=== PATIENT | female | born 1995 | race Caucasian/White ===

== ENCOUNTER 2021-03-17 20:00 | Outpatient (CLI) | payer OTHER, SELFPAY | END 2021-03-17 20:01 | disposition home or self-care (01) | LOC: SLEEP 03-18 06:35 | PROVIDERS: Visit Provider Specialist | DX: J34.89 Other specified disorders of nose and nasal sinuses (principal) | CPT/HCPCS: 95810 ==

== ENCOUNTER → 2021-08-10 14:03 | Outpatient (BNVA) | payer OTHER, SELFPAY | PROVIDERS: Visit Provider Specialist | DX: Z20.822 Contact with and (suspected) exposure to COVID-19 (principal) | CPT/HCPCS: 87635 ==

== ENCOUNTER 2021-08-15 09:55 | Observation (INO) | payer OTHER, SELFPAY ==
[2021-08-14 13:34] VITALS: BMI 40.7
[2021-08-15 06:27] VITALS: BP 128/97; PULSE 105; RESP 18; TEMP 36.8; O2SAT 94
--- NOTE | 2021-08-15 06:46 | W.PM.OPSUD ---
Surgery/Procedure H&P Update DATE OF PROCEDURE: August 15, 2021 DATE H&P PERFORMED: 07/21/21 PRIMARY INDICATION FOR PROCEDURE: H/O Right thyroid lobe papillary thyroid carcinoma PLANNED PROCEDURE: Operation Date: 08/15/21 07:00 Proposed Procedures p Alberto-thyroidectomy/complete(Left) - Luke Maradiaga MD
[2021-08-15] MEDS: sodium chloride 0.9% 1,000 ML 30 ML IV ×2 (06:49→14:23)
--- NOTE | 2021-08-15 06:58 | ANES.PREANE2 ---
Pre-Anesthetic Assessment Height/Weight: Height 1.7 m Weight 117.934 kg Temp Pulse Resp BP Pulse Ox 98.2 F 105 H 18 128/97 94 08/15/21 06:27 08/15/21 06:27 08/15/21 06:27 08/15/21 06:27 08/15/21 06:27 Operation Date: 08/15/21 07:00 Proposed Procedures p Alberto-thyroidectomy/complete(Left) - Luke Maradiaga MD Familial anesthetic complications: none Was Beta Mague taken within 24 hours: N/A Was Clonidine taken within 24 hours: N/A Last intake: Intake Last Liquid Date 08/14/21 Last Liquid Time 21:00 Last Solid Date 08/14/21 Last Solid Time 19:00 Social No alcohol and No tobacco Exam alert, oriented x 3, clear to auscultation bilaterally and regular rate & rhythm Airway Mallampati: Class IV Dentition: other (chipped/veneers front two teeth) Pulmonary hx bronchitis in feb 2020 now with residual need for inhaler use prn Metabolic Morbid Obesity and Thyroid Disease Anesthetic Plan ASA status: 3 Anesthesia: General Risk of > 500 ml blood loss (7ml/kg in children): No Medications/Allergies Home Medications Medication Instructions Recorded Confirmed Last Taken Type albuterol sulfate 90 mcg/actuation 2 inh INHALATION QID PRN 08/14/21 08/14/21 Unknown History aerosol inhaler (Ventolin HFA) budesonide 32 mcg/actuation nasal 2 spray INTRANASAL DAILY 08/14/21 08/15/21 08/14/21 History spray clonazepam 1 mg tablet 1 mg PO BID 08/14/21 08/15/21 08/14/21 20:00 History doxylamine succinate 25 mg tablet 25 mg PO BEDTIME PRN 08/14/21 08/15/21 08/14/21 20:00 History (Unisom (doxylamine)) eszopiclone 3 mg tablet (Lunesta) 3 mg PO BEDTIME PRN 08/14/21 08/15/21 Unknown History fluticasone propionate 50 2 spray INTRANASAL DAILY 08/14/21 08/14/21 Unknown History mcg/actuation nasal spray,suspension gabapentin 300 mg capsule 600 mg PO BID 08/14/21 08/15/21 08/14/21 20:00 History olopatadine 0.6 % nasal spray 2 spray INTRANASAL BID 08/14/21 08/14/21 Unknown History zolpidem 10 mg tablet (Ambien) 10 mg PO BEDTIME PRN 08/14/21 08/15/21 08/14/21 20:00 History Allergies Allergy/AdvReac Type Severity Reaction Status Date / Time hydrocodone Allergy Severe ALGY-Swell Verified 08/15/21 06:29 Lip/Tongue/Throat tramadol Allergy Severe ALGY-Swell Verified 08/15/21 06:29 Lip/Tongue/Throat Current Medications Generic Name Dose Route Start Last Admin Trade Name Freq PRN Reason Stop Dose Admin Sodium Chloride 1,000 mls @ 30 mls/hr 08/15/21 06:30 08/15/21 06:49 Sodium Chloride 0.9% IV 08/16/21 06:29 30 mls/hr .Q24H LIN Administration PFSH Anesthesia Medical History (Updated 08/15/21 @ 06:46 by Luke Maradiaga MD) Malignant neoplasm of thyroid gland Female Reproductive History Date of last menstrual period: 07/25/21 Data Anesthesia Cardiac Studies: No Data to Display
[2021-08-15 06:59] LABS: OR HCG Qualitative Urine Negative (Negative)
[2021-08-15] MEDS: ceFAZolin 1,000 mg SDV 1000 MG IVP (07:35)
[2021-08-15] MEDS: ceFAZolin 1,000 mg SDV 1000 MG IRRIGATION (07:55)
[2021-08-15] MEDS: fluorescein 1 mg Strip 3 MG XX (08:15)
[2021-08-15] MEDS: EPINEPHrine 1 mg/mL INJ XX (08:17)
--- NOTE | 2021-08-15 08:18 | SUR.OPER ---
0750 family updated of surgical status
--- NOTE | 2021-08-15 08:54 | SUR.OPER ---
1679 attempted to contact family with surgical update
--- NOTE | 2021-08-15 09:00 | SUR.OPER ---
0900 family updated of surgical status
[2021-08-15] MEDS: thrombin 5,000 unit SDV 5000 UNIT XX (09:15)
[2021-08-15] MEDS: triamcinolone 40 mg/mL SDV IM (09:23)
[2021-08-15] MEDS: neomycin-poly-bacitracin oint 28 gm 1 APPLIC TOPICAL (09:40)
--- NOTE | 2021-08-15 10:04 | PM.OP ---
Operative Report Date of procedure: August 15, 2021 Pre-op diagnosis: h/o right papillary thyroid carcinoma - the patient presents for left radha/completion thyroidectomy Post-op diagnosis: same Post-op findings: - Extensive post surgical changes and scarification in the left neck - Left recurrent laryngeal nerve identified and functional at end of case - Upper and lower left parathyroid glands identified and left in situ - O/W normal left anterior neck/thyroid area exam Procedure done: Left radha/completion thyroidectomy Implants: None Specimens removed/disposition: Left thyroid lobe Pathology: Left thyroid lobe Surgeon: Luke Maradiaga [employer] Supervisor: Timothy Saunders Anesthesia: General Estimated blood loss (mL): 10 IV fluids (mL): 1,300 Complications: None Findings: See above Condition: stable Disposition: ICU Brief History: 25 yo wf with a h/o right papillary thyroid carcinoma who presents for left radha/completion thyroidectomy. Procedure: The patient was identified in the preoperative holding area and was placed on the operating table in the supine position. Anesthesia was obtained with general endotracheal anesthesia using the Nirvana nerve monitoring endotracheal tube. A horizontal skin incision was marked out on the anterior neck 2 fingerbreadths above the sternal notch and was injected with local anesthesia. The patient was then prepped and draped in the usual sterile fashion. After the nerve monitor was completely set up and tested, the incision was made with a 15 blade and was carried down through the subcutaneous tissues using electrocautery. The dissection proceeded through the scar tissue of the anterior neck until the trachea was identified both visually and to palpation. The strap muscles which were scarred onto the left thyroid lobe were dissected off the left thyroid lobe. At this point, using the Nirvana dissecting hemostat, the left thyroid lobe was dissected free from the surrounding tissues. The left carotid sheath was identified and the nerve monitor was used to stimulate the vagus nerve ensuring that the nerve monitoring circuit was intact on the left. Once the left-sided nerve monitoring circuit was assured, the dissection proceeded in a sequential fashion starting at the left middle thyroid vein. This was dissected off of the lateral portion of the lobe and was clipped with hemoclips and was divided with the bipolar forceps. Attention was then turned to the left inferior pole which was dissected free from the thyrothymic horn using the Nirvana nerve dissector. The inferior pole vessels were dissected free from the left thyroid lobe inferiorly and were clipped and divided. The dissection then proceeded superiorly as the left thyroid lobe was rotated medially. Of note, there was extensive scarring in the neck. The dissection proceeded superiorly and each of the superior vessels was dissected free individually and was clipped and divided. As the left lobe was rotated medially the recurrent laryngeal nerve was identified in the tracheoesophageal groove electrically using the nerve monitoring hemostat. Irby's ligament on the left was wide and dense and was dissected free leaving a small cuff overlying the recurrent laryngeal nerve on the left. The left pole was then removed and was inspected for any signs of parathyroid tissue which of which none were found. Parathyroid glands were found at the superior pole area in the inferior pole area in situ and appeared healthy. At this point the left anterior neck was irrigated with a copious amount of warm normal saline, and hemostasis was achieved with bipolar cautery. The tracheoesophageal groove was then filled with Gelfoam soaked in thrombin. A small Sung drain was placed in the wound and the wound was then closed in layers with 4-0 and 5-0 Monocryl sutures in the subcu and Dermabond and Steri-Strips on the skin. Once this was accomplished, the procedure was terminated and control of the patient was returned to anesthesia where she underwent an uneventful reversal of anesthesia and extubation and was taken to the recovery room in stable condition. There were no operative or anesthetic complications.
[2021-08-15 10:08] LABS: Ionized Calcium 1.1 mmol/L (1.1-1.4)
[2021-08-15 10:46] LABS: Calcium 8.8 mg/dL (8.5-10.5)
[2021-08-15 10:50] VITALS: RESP 16; O2SAT 98
[2021-08-15] MEDS: morphine 4 mg/mL SDV 1 mL 2 MG IVP (10:50)
[2021-08-15 10:53] LABS: Parathyroid Hormone 45.4 pg/mL (15-65)
[2021-08-15] MEDS: acetaminophen-codeine 300-30mg Tablet PO ×3 (11:36→20:07)
--- NOTE | 2021-08-15 12:00 | PC.NURSE ---
Pt was admitted to the unit at 1000 from surgery via bed with steri strips and drain in place. Sanguineous blood in bulb. Mother at bedside shortly after with all belongings. PRN pain medications given for pain at 10.
--- NOTE | 2021-08-15 12:48 | ANE.PACU2 ---
Inpatient post-anesthesia follow up: Airway intact: Yes Vital signs: Temperature 98.2 F Pulse Rate 105 Respiratory Rate 16 Blood Pressure 128/97 Pulse Oximetry 98 Oxygen Delivery Me thod Nasal Cannula Oxygen Flow Rate Fraction of Inspir ed Oxygen Hydration adequate: Yes Nausea and vomiting: No Pain level: 8 Mental status: Baseline Additional Comments: Taken to the ICU post op. Difficult to control pain in ICU. Multi modal pain medications ordered.
--- NOTE | 2021-08-15 17:51 | PM.PN ---
Subjective Subjective: 25 yo wf who is night of surgery s/p completion thyroidectomy. The patient reports that she is doing well. She has moderate pain that is well controlled with Tylenol #3. She has no other c/o. Vitals/I&O/Wt Last Vital Signs Temp 98.2 F 08/15/21 06:27 Pulse 105 H 08/15/21 06:27 Resp 16 08/15/21 10:50 BP 128/97 08/15/21 06:27 Pulse Ox 98 08/15/21 10:50 08/15/21 08/15/21 08/15/21 06:59 14:59 22:59 Intake Total 1300 / 1300 Balance 1300 / 1300 Weight last 48 hrs Weight 117.934 kg Physical Exam Const: COMMON NORMALS: no acute distress and patient oriented x3 HENMT: COMMON NORMALS: atraumatic, hearing grossly normal bilaterally and Normal external nose present HEAD & SCALP: atraumatic FACE & SINUS: normal facial exam and face symmetric NOSE: Normal external nose present MOUTH: Normal oral and palatal mucosa present and tongue normal Eye: COMMON NORMALS: EOMs intact bilaterally and no scleral icterus Neck/C-Spine: COMMON NORMALS: no lymphadenopathy THYROID: other (Thyroid incision is intact, without erythema or swelling. ) Lymph: LYMPHATIC: no lymphadenopathy noted Neuro: COMMON NORMALS: patient oriented x3 Urinary Catheter Management: Fry Latex: Cath Placed During This Visit: yes, but has since been removed by the nurse Urinary Catheter Date of Insertion: 08/15/21 Urinary Catheter Time of Insertion: 07:35 Date Urinary Catheter Removed: 08/15/21 Time Urinary Catheter Discontinued: 09:44 Data Attestation for Other Data: I personally reviewed and interpreted the following: Other data: Post op Ionized Calcium Level and PTH level. A&P Assessment and plan (1) Malignant neoplasm of thyroid gland: Impression: 25 yo wf who is doing well s/p left radha/completion thyroidectomy Plan: - Continue closed suction drainage - Tylenol #3 and Morphine prn pain - Anticipate d/c in the morning Status: Acute Attestations Medical Necessity Statement*: The patient requires inpatient observation of her airway and serum calcium levels. Coding Level of Care Code Acute Acupressurist for [facility] Diagnoses Malignant neoplasm of thyroid gland C73
[2021-08-15 19:52] LABS: Ionized Calcium 1.2 mmol/L (1.1-1.4)
[2021-08-15 20:00] VITALS: BP 146/112; PULSE 114; RESP 19; TEMP 36.9; O2SAT 95
[2021-08-15] MEDS: gabapentin 300 mg Capsule 600 MG PO (20:52)
[2021-08-15] MEDS: zolpidem 5 mg Tablet 10 MG PO (21:01)
[2021-08-15 21:04] LABS: Calcium 9.1 mg/dL (8.5-10.5)
[2021-08-15 21:10] LABS: Parathyroid Hormone 31.6 pg/mL (15-65)
--- NOTE | 2021-08-15 21:43 | PC.NURSE ---
Patient c/o of slight burning with scant blood with urination after cheng catheter removed.
[2021-08-15 22:00] VITALS: PULSE 121; RESP 20
[2021-08-16] VITALS: PULSE 124; RESP 19; TEMP 36.9; O2SAT 95
[2021-08-16] MEDS: acetaminophen-codeine 300-30mg Tablet PO (00:21)
[2021-08-16 02:00] VITALS: PULSE 92; RESP 13
[2021-08-16 04:25] LABS: Calcium 9.4 mg/dL (8.5-10.5)
[2021-08-16 04:33] LABS: Parathyroid Hormone 46.4 pg/mL (15-65)
--- NOTE | 2021-08-16 05:10 | P.PN_ITS ---
Subjective Subjective: 25 yo wf who is POD #1 s/p left radha/completion thyroidectomy. The patient reports that she has minimal to moderate pain and is able to eat well. The patient report some blood in her vaginal area yesterday post op and some dysuria, but reports that this is improving. She has no other c/o. Medications: Reviewed: Yes Vitals/I&O/Wt Last Vital Signs Temp 98.4 F 08/16/21 00:00 Pulse 92 08/16/21 02:00 Resp 13 08/16/21 02:00 BP 146/112 08/15/21 20:00 Pulse Ox 95 08/16/21 00:00 08/15/21 08/15/21 08/16/21 14:59 22:59 06:59 Intake Total 1300 / 1300 1420 / 2720 60 / 2780 Output Total 10 / Balance 1300 / 1300 1410 / 2710 60 / 2770 Weight last 48 hrs Weight 117.934 kg Physical Exam Const: COMMON NORMALS: no acute distress, patient oriented x3, alert and well nourished HENMT: COMMON NORMALS: normocephalic, atraumatic, external ears normal and Normal external nose present HEAD & SCALP: normocephalic and atraumatic FACE & SINUS: normal facial exam NOSE: Normal external nose present EXTERNAL EAR: Yes external ears normal Eye: COMMON NORMALS: EOMs intact bilaterally and conjunctivae normal CONJUNCTIVA: Yes conjunctivae normal Neck/C-Spine: COMMON NORMALS: full ROM and no lymphadenopathy GENERAL: Yes other (Neck wound clean, without swelling or redness.) Lymph: LYMPHATIC: no lymphadenopathy noted Resp: COMMON NORMALS: normal respiratory effort, No use of accessory muscles and clear to auscultation bilaterally AUSCULTATION: clear to auscultation bilaterally Cardio: COMMON NORMALS: regular rate, regular rhythm and No murmurs present (Cardio) RATE: regular rate RHYTHM: regular rhythm GI: COMMON NORMALS: Normal to inspection, nondistended, normoactive bowel sounds present Extremity: COMMON NORMALS: normal to inspection Neuro: COMMON NORMALS: patient oriented x3 and CN's II-XII intact bilaterally SENSORIUM/ORIENTATION: Yes alert Urinary Catheter Management: Fry Latex: Cath Placed During This Visit: yes, but has since been removed by the nurse Reason for Continuing Indwelling Catheter: Decision to DC Catheter Urinary Catheter Date of Insertion: 08/15/21 Urinary Catheter Time of Insertion: 07:35 Date Urinary Catheter Removed: 08/15/21 Time Urinary Catheter Discontinued: 12:00 Data Attestation for Other Data: I personally reviewed and interpreted the following: Other data: Serum Calcium and PTH levels A&P Assessment and plan (1) Malignant neoplasm of thyroid gland: Impression: 1) 25 yo wf who is POD #1 s/p left radha/completion thyroidectomy (for multifocal right thyroid lobe papillary carcinoma) with stable post op serum calcium and PTH levels 2) Post Op dysuria - improving Plan: 1) Discharge to home - Synthroid 175mcg po QD, #30, RX5 - Tylenol #3 tabs: take 1-2 tabs po Q5 hours prn pain, #25, NR - Oscal 600 + D: one tab po TID X 2 Weeks, then one tab po BID X one week, then one tab po QD X one week - Apply MASON to drain exit site TID - F/U in Dr. Maradiaga's office on 08/18/21 @ 13:00 hours; contact Dr. Maradiaga for any problems 2) The patient is to f/u with her PCP after discharge if she continues to experience dysuria Status: Acute Attestations Medical Necessity Statement*: The patient required overnight observation of her airway and serum calcium levels Coding Level of Care Code Acute Datastage Developer for [facility] [employer] Diagnoses Malignant neoplasm of thyroid gland C73
[2021-08-16] MEDS: gabapentin 300 mg Capsule 600 MG PO (08:44)
[2021-08-16 09:02] VITALS: PULSE 92; RESP 13
== END 2021-08-16 09:05 | disposition home or self-care (01) ==
LOC: ICU 10:00
PROVIDERS: Admitting Provider Specialist; Visit Provider Specialist
PROC: (CPT 60240; principal; 2021-08-15 07:00)
DX: C73 Malignant neoplasm of thyroid gland (principal)
CPT/HCPCS: 60240; 12345; 51702; 81025; 82310; 82330; 83970; 84703; 88307; G0378; J0171; J0330; J0690; J1100; J2270; J2370; J2405; J2704; J3010; J3301; J7030

== ENCOUNTER 2022-01-29 06:00 | Outpatient (RCR) | payer OTHER, SELFPAY | END 2022-02-09 23:59 | disposition home or self-care (01) | LOC: SPT 06:00 | PROVIDERS: Visit Provider Neurological Surgery | DX: M54.2 Cervicalgia (principal) | CPT/HCPCS: 97110; 97162 ==

== ENCOUNTER 2022-02-10 06:00 | Outpatient (RCR) | payer OTHER, SELFPAY | END 2022-03-12 23:59 | disposition home or self-care (01) | LOC: SPT 06:00 | PROVIDERS: Visit Provider Neurological Surgery | DX: M54.2 Cervicalgia (principal) | CPT/HCPCS: 97110 ==

== ENCOUNTER 2022-03-13 06:00 | Outpatient (RCR) | payer OTHER, SELFPAY | END 2022-03-30 23:55 | disposition home or self-care (01) | LOC: SPT 06:00 | PROVIDERS: Visit Provider Neurological Surgery | DX: Z98.1 Arthrodesis status (principal) | CPT/HCPCS: 97110 ==